=== PATIENT | female | born 1970 | race Caucasian/White ===

== ENCOUNTER 2016-12-23 23:11 | Emergency (ER) | payer BC, MEDICARE | END 2016-12-24 01:10 | disposition home or self-care (01) | LOC: ER 23:11 | DX: R10.9 Unspecified abdominal pain (principal); R11.0 Nausea; Z87.440 Personal history of urinary (tract) infections; Z79.899 Other long term (current) drug therapy | CPT/HCPCS: 36415; 96365; 96375; J0696 ==